=== PATIENT | male | born 1960 | race Caucasian/White ===

== ENCOUNTER 2025-02-28 17:18 | Inpatient (IN) | payer BC, SELFPAY ==
[2025-02-28] VITALS (9 sets, daily range): BP systolic 98–157; BP diastolic 65–90; BMI 31.7
--- NOTE | 2025-02-28 13:26 | ED.GENMED ---
History of Present Illness
<Isabel Weaevr PA-C - Last Filed: 02/28/25 17:19>
General
Chief Complaint: Urinary Symptoms
Source: patient
Exam Limitations: none
Time Seen by Provider: 02/28/25 13:03
History of Present Illness
History of Present Illness:
64yoM with a history of hyperlipidemia presenting for evaluation of UTI symptoms. Symptoms began 3 days ago. He felt like he was coming down with something and was experiencing body aches and chills. He then developed dysuria, urinary frequency,
and urinary urgency. His urinary symptoms have been worsening over the past 24 hours and he felt like he was in the bathroom every 10 minutes last night. He reports subjective fevers at home but has not been checking his temperature. He went to
urgent care prior to arrival. Temperature was 100.2. Urinalysis showed blood and protein and he was sent to the ED for evaluation. He denies any flank pain, vomiting, testicular pain. He is visiting family in the area for the holidays and is
from [place]. He was previously taking tadalafil for BPH but no longer takes this.
Past History
<Isabel Weaver PA-C - Last Filed: 02/28/25 17:19>
Past History
ED Past Medical History: Negative HTN, Hypercholesterolemia or IDDM
ED Past Surgical History: None
Social History
Tobacco: Smoker
Phy Exam
<Isabel Weaver PA-C - Last Filed: 02/28/25 17:19>
General Physical Exam
General Presentation: well appearing
General Skin: warm and dry
General Habitus: normal
General Mental: alert
ENT Exam
ENT Exam: normocephalic
Pulmonary Exam
Pulmonary Exam: no respiratory distress
Gastrointestinal Exam
Gastrointestinal Exam: non tender, soft, non distended and no cva tenderness
Neurological Exam
Neurological Exam: alert
Julianne Coma Scale
Eye Opening: Spontaneous
Verbal Response: Oriented
Motor Response: Obeys Commands
GCS Total Score: 15
Skin Exam
Skin Exam: normal color and warm/dry
Psychiatric Exam
Psychiatric Exam: normal mood/affect
Course
<Isabel Weaver PA-C - Last Filed: 02/28/25 17:19>
Orders/Labs/Results
Orders:
Orders
02/28/25 13:16
Urinalysis Reflex To Culture Urgent
Date Specimen was Collected: 02/28/25
Time Specimen was Collected: 13:05
Urine Microscopic Reflex Cult Urgent
Urine Culture Urgent
ANJANA Source: U
Specimen Description:
Date Specimen was Collected: 02/28/25
Time Specimen was Collected: 13:05
02/28/25 13:21
0.9% Sodium Chloride 1000 ml [Nss] 1,000 ml IV BOLUS
02/28/25 13:23
CT Abd/pelvis W Iv Cont Urgent
Comment:
Reason For Exam: UTI symptoms, fever
02/28/25 13:34
Basic Metabolic Panel Urgent
Complete Blood Count/With Diff Urgent
Lactic Acid Urgent
02/28/25 16:03
0.9% Sodium Chloride 1000 ml [Nss] 1,000 ml IV BOLUS
02/28/25 16:04
Acetaminophen [Tylenol] 1,000 mg PO NOW STA
02/28/25 16:18
CefTRIAXone [Rocephin] 2,000 mg IV NOW STA
02/28/25 16:22
LFT [Jyupt-Cjxm-Exziptz] Urgent
Magnesium Urgent
Comment: ADD ON
Potassium Urgent
Comment: ADD ON
Blood Culture Q30M
ANJANA Source: Blood/Venous
Specimen Description:
Blood Culture Q30M
ANJANA Source: Blood/Venous
Specimen Description:
02/28/25 16:29
Add On- LAB Urgent
Tests Added?: potassium, magnesium
02/28/25 16:45
Admit/Transfer Patient As Directed
Co-Sign Provider:
Level of Care: Inpatient admission
Assign to:: Medical/Surgical
Physician / Group: Antonella Catherine
Diagnosis: fevers, urinary tract infection
Reason for Hospitalization: fevers, urinary tract infection
Expected length of stay greater than two midnights?: Yes
ELOS- Estimated Length of Stay in days: 3
I certify the patient meets the requirements for IP care: Yes
PRN Pain Medication Management As Directed
May give lesser potent ordered pain med per pt: Yes
preference::
Protocol:: Medication orders for pain may be administered in a
manner that supports deferring to patient preference
when the pt is:
- Requesting an ordered lesser potent pain medication.
Least to most potent pain medications are defined
as: acetaminophen < NSAID < tramadol < opioids
(morphine, oxycodone, hydromorphone).
- Requesting a lesser dose of the same medication IF
ORDERED.
- Requesting a less intrusive route of administration
if both routes are prescribed by the provider (PO <
IV).
02/28/25 16:48
Code Status As Directed
Resuscitation Status: Full Code
Abnormal Lab Results
02/28/25 02/28/25 02/28/25
13:16 13:34 16:22
WBC 13.3 H 10^3/uL
(4.8-10.8)
RBC 4.60 L 10^6/uL
(4.70-6.10)
Abs Immat Gran (auto) 0.1 H 10^3/uL
(0-0.05)
Absolute Neuts (auto) 12.0 H 10^3/uL
(1.4-6.5)
Absolute Lymphs (auto) 0.3 L 10^3/uL
(1.2-3.4)
Absolute Monos (auto) 0.9 H 10^3/uL
(0.1-0.6)
Neutrophils % 90.4 H %
(42.2-75.2)
Lymphocytes % 2.0 L %
(20.5-51.1)
Sodium 131 L mmol/L
(135-145)
Glucose 135 H mg/dl
(70-99)
Total Bilirubin 1.7 H mg/dl
(0.2-1.3)
Urine Ketones 1+ A
(Negative)
Ur Occult Blood Reflex 4+ A
(Negative)
Leukocyte Esterase Rfl 2+ A
(Negative)
Urine RBC 7-10 A /HPF
(0-2)
Urine WBC (Reflex) 50-60 A /HPF
(0-5)
Urine Bacteria (Reflex) Moderate A
(Negative)
Urine Albumin (Reflex) 3+ A
(Neg - Trace)
02/28/25 13:34
Vital Signs
Initial and Last Documented VS:
Initial Vital Signs
Temp Pulse Resp BP Pulse Ox
98.9 F 117 16 143/82 96
02/28/25 12:54 02/28/25 12:54 02/28/25 12:54 02/28/25 12:54 02/28/25 12:54
Last Documented Vital Signs
Temp Pulse Resp BP Pulse Ox
103.0 F H 104 16 128/76 95
02/28/25 16:00 02/28/25 15:55 02/28/25 12:54 02/28/25 16:00 02/28/25 16:31
<Cassandra Delgado, DO - Last Filed: 02/28/25 16:48>
Orders/Labs/Results
Orders:
Orders
02/28/25 13:16
Urinalysis Reflex To Culture Urgent
Date Specimen was Collected: 02/28/25
Time Specimen was Collected: 13:05
Urine Microscopic Reflex Cult Urgent
Urine Culture Urgent
ANJANA Source: U
Specimen Description:
Date Specimen was Collected: 02/28/25
Time Specimen was Collected: 13:05
02/28/25 13:21
0.9% Sodium Chloride 1000 ml [Nss] 1,000 ml IV BOLUS
02/28/25 13:23
CT Abd/pelvis W Iv Cont Urgent
Comment:
Reason For Exam: UTI symptoms, fever
02/28/25 13:34
Basic Metabolic Panel Urgent
Complete Blood Count/With Diff Urgent
Lactic Acid Urgent
02/28/25 16:03
0.9% Sodium Chloride 1000 ml [Nss] 1,000 ml IV BOLUS
02/28/25 16:04
Acetaminophen [Tylenol] 1,000 mg PO NOW STA
02/28/25 16:18
CefTRIAXone [Rocephin] 2,000 mg IV NOW STA
02/28/25 16:22
LFT [Hhjfp-Kohd-Zilcvtg] Urgent
Magnesium Urgent
Comment: ADD ON
Potassium Urgent
Comment: ADD ON
Blood Culture Q30M
ANJANA Source: Blood/Venous
Specimen Description:
Blood Culture Q30M
ANJANA Source: Blood/Venous
Specimen Description:
02/28/25 16:29
Add On- LAB Urgent
Tests Added?: potassium, magnesium
02/28/25 16:45
Admit/Transfer Patient As Directed
Co-Sign Provider:
Level of Care: Inpatient admission
Assign to:: Medical/Surgical
Physician / Group: Antonella Catherine
Diagnosis: fevers, urinary tract infection
Reason for Hospitalization: fevers, urinary tract infection
Expected length of stay greater than two midnights?: Yes
ELOS- Estimated Length of Stay in days: 3
I certify the patient meets the requirements for IP care: Yes
PRN Pain Medication Management As Directed
May give lesser potent ordered pain med per pt: Yes
preference::
Protocol:: Medication orders for pain may be administered in a
manner that supports deferring to patient preference
when the pt is:
- Requesting an ordered lesser potent pain medication.
Least to most potent pain medications are defined
as: acetaminophen < NSAID < tramadol < opioids
(morphine, oxycodone, hydromorphone).
- Requesting a lesser dose of the same medication IF
ORDERED.
- Requesting a less intrusive route of administration
if both routes are prescribed by the provider (PO <
IV).
02/28/25 16:48
Code Status As Directed
Resuscitation Status: Full Code
Abnormal Lab Results
02/28/25 02/28/25 02/28/25
13:16 13:34 16:22
WBC 13.3 H 10^3/uL
(4.8-10.8)
RBC 4.60 L 10^6/uL
(4.70-6.10)
Abs Immat Gran (auto) 0.1 H 10^3/uL
(0-0.05)
Absolute Neuts (auto) 12.0 H 10^3/uL
(1.4-6.5)
Absolute Lymphs (auto) 0.3 L 10^3/uL
(1.2-3.4)
Absolute Monos (auto) 0.9 H 10^3/uL
(0.1-0.6)
Neutrophils % 90.4 H %
(42.2-75.2)
Lymphocytes % 2.0 L %
(20.5-51.1)
Sodium 131 L mmol/L
(135-145)
Glucose 135 H mg/dl
(70-99)
Total Bilirubin 1.7 H mg/dl
(0.2-1.3)
Urine Ketones 1+ A
(Negative)
Ur Occult Blood Reflex 4+ A
(Negative)
Leukocyte Esterase Rfl 2+ A
(Negative)
Urine RBC 7-10 A /HPF
(0-2)
Urine WBC (Reflex) 50-60 A /HPF
(0-5)
Urine Bacteria (Reflex) Moderate A
(Negative)
Urine Albumin (Reflex) 3+ A
(Neg - Trace)
02/28/25 13:34
Vital Signs
Initial and Last Documented VS:
Initial Vital Signs
Temp Pulse Resp BP Pulse Ox
98.9 F 117 16 143/82 96
02/28/25 12:54 02/28/25 12:54 02/28/25 12:54 02/28/25 12:54 02/28/25 12:54
Last Documented Vital Signs
Temp Pulse Resp BP Pulse Ox
103.0 F H 104 16 128/76 95
02/28/25 16:00 02/28/25 15:55 02/28/25 12:54 02/28/25 16:00 02/28/25 16:31
<Isabel Weaver PA-C - Last Filed: 02/28/25 17:19>
MDM/Problems Addressed
Differential Diagnosis Includes:
64yoM here with UTI symptoms and chills. Sent here by urgent care. Temp 98.9 on arrival. HR 117. BP stable. Patient non-toxic appearing. No CVA tenderness on exam. Differential diagnosis includes but is not limited to: UTI, pyelonephritis,
prostatitis, sepsis
Initial ED plan: Check CBC, CMP, lactate, UA, and CT abdomen with contrast. IV fluid bolus.
<Isabel Weaver PA-C - Last Filed: 02/28/25 17:19>
*Pulse Oximetry
SaO2: 96
Oxygen Mode of Delivery: Room air
Patient hypoxic: no
*Critical Care Note
Total Time (30-74mins, 75-104mins- exclusive of procedures): Not Applicable
<Isabel Weaver PA-C - Last Filed: 02/28/25 17:19>
Update Note
Update Note:
White count elevated at 13.3. Lactate within normal limits. UA with 50-60 WBCs and moderate bacteria. No evidence of hydronephrosis or stone on CT. While in ED, patient spiked a fever of 103. Blood cultures and IV Rocephin added. Will admit
for further management.
ED Attending Note
<Isabel Weaver PA-C - Last Filed: 02/28/25 17:19>
-
Portions of this chart may have been created with voice recognition software.� Occasional wrong word or��sound alike� substitutions may have occurred due to the inherent limitations of voice recognition software.
<Cassandra Delgado DO - Last Filed: 02/28/25 16:48>
ED Attending Note
Patient seen and examined by attending physician: Yes
I performed the substantive portion of visit, reviewed & personally made and approve the management plan that is documented in note by myself or EZEQUIEL.: Yes
I performed a history and physical exam of patient and discussed management with resident, I reviewed resident's note and agree with documented findings and plan of care.: Yes
ED Attending Note:
64-year-old male without significant past medical history presenting to the emergency department for urinary symptoms. Patient reports pain with urination for the past 4 days. Also reports fevers at home. Notes some generalized lower abdominal
discomfort. Denies any prior history of UTI. Does note history of prostate issues. Denies chest pain or difficulty breathing. Vital signs on arrival significant for tachycardia, however while in the hospital, spiked a temperature to 103.
On exam, patient in no acute distress. On abdominal exam, mild lower abdominal tenderness without rebound or guarding. Patient seen and evaluated by physician medical assistant prn prior evaluation with appropriate workup completed including laboratory
analysis and urinalysis. Workup significant for leukocytosis and UTI. Vital signs are meeting SIRS criteria, and doubt sepsis with known source of infection. Lactic acid however within normal limits. No concern for severe sepsis or septic shock.
Patient had CT imaging completed which does show acute cystitis without additional complicating features. Given patient's age, vitals, concern for sepsis, plan for admission for IV antibiotics
Discharge Plan
Departure
Patient Disposition: Admit
Date of Disposition: 02/28/25
Time of Disposition: 16:23
Presentation/result/management discussed w/ accepting MD/DO: Hospitalist
Discharge Problem:
Acute pyelonephritis, Sepsis
Prescriptions:
No Action
atorvastatin [Lipitor] 20 mg Tablet
20 mg PO DAILY
Referrals:
NONE,* [Family Provider, Internal Medicine]
Interventions
Interventions:
*Risk Screen - Suicide Last Done: 02/28/25 12:54
*General Assessment Last Done: 02/28/25 13:21
*Neglect/Abuse Screening Last Done: 02/28/25 12:54
*ED- Fall Risk Assessment Last Done: 02/28/25 13:21
*ED COVID-19 Vaccine History Last Done: 02/28/25 13:21
*ED Influenza Vaccine History Last Done: 02/28/25 13:21
ED-Male Genitourinary Assessment Last Done: 02/28/25 13:22
Discharge Date and Time
Print Language: GIBRALTARIAN
[2025-02-28 13:33] LABS: Urine Character Clear (Clear)
[2025-02-28] MEDS: NSS 1000 IV ×3 (13:34→19:57)
[2025-02-28 13:43] LABS: Hematocrit 40.4 % (39.0-52.0); Hemoglobin 13.9 g/dL (13.0-18.0); Mean Corp Hgb Conc. 34.4 g/dL (33.0-37.0); Mean Corpuscular Volume 87.8 fL (80.0-94.0); Nucleated Red Blood Cells % 0 % (-); Platelet Count 169 10^3/uL (130-400); Red Cell Dist. Width 13.7 % (11.5-14.5)
[2025-02-28 13:56] LABS: Urine White Cell 50-60 /HPF (0-5)
[2025-02-28 14:03] LABS: Blood Urea Nitrogen 10 mg/dl (9-20); Calcium 8.9 mg/dl (8.4-10.2); Carbon Dioxide 24 mmol/L (22-30); Chloride 101 mmol/L (98-107); Estimated Creatinine Clearance 104 ml/min; Glucose 135 mg/dl (70-99); Sodium 131 mmol/L (135-145); eGFR > 60.00
[2025-02-28] MEDS: TYLENOL 1000 MG PO (16:09)
--- NOTE | 2025-02-28 16:24 | HPS.HSE ---
Addendum entered and electronically signed by Antonella Catherine MD 02/28/25 18:23:
Daily Alcohol Use
-last drink several days ago, does not appear tremulous on exam
-order MSAS protocol
Original Note:
Family Physician
-
Family Physician: * NONE
Chief Complaint
-
fever and frequent urination
History of Present Illness
Mr. Slava Barajas is a 64 yo man with hx ex-smoker, throat CA (s/p chemo/radiation 2022 now in remission) presents to the ER with body aches and chills x past 3 days. He has had increased urinary frequency and burning.
He has felt warm but did not measure fevers at home. He has had decreased appetite. + nausea, no vomiting. No significant back pain. No abdominal pain. No chest pain or shortness of breath.
Prior to this episode patient has been waking up several times at night. Prescribed Tadalafil without relief.
Medical History
Past Medical History
Past Medical History: Reports Other (throat CA s/p chemo and radiation 2022)
Past Surgical History: Reports Other
Social History
Tobacco: Former Smoker
Alcohol: Daily
Family History
Family History: Not pertinent
Allergies / Home Medications
Allergies reflects when Allergies were last updated in [facility].
Home Medications with original date entered in [facility]
Allergy/Medication List:
Allergies
Allergy/AdvReac Type Severity Reaction Status Date / Time
Penicillins Allergy Unknown Verified 02/28/25 13:15
Home Medications
atorvastatin 20 mg tablet (Lipitor) 20 mg PO DAILY 02/28/25
Review of Systems
-
History Source: Patient
A 12 point ROS was completed and negative except as noted: Yes
Physical Exam
Vital Signs
Vital Signs
Temp Pulse Resp BP Pulse Ox
103.0 F H 117 16 135/81 93
02/28/25 16:00 02/28/25 12:54 02/28/25 12:54 02/28/25 13:36 02/28/25 13:36
Physical Exam
General: No Apparent Distress and Conversant
HEENT: PERRLA
Respiratory: Clear; No Wheezes
Cardiac: S1/S2 and Regular Rhythm
GI: Soft and Non Tender
Genito-urinary: No Costovertebral angle tend
Musculoskeletal: No Edema
Skin: Warm and Dry; No Rash
Neuro: AO x 3
Psych: Calm
Laboratory Results
-
02/28/25 13:34
02/28/25 13:34
Laboratory Results
Lactic Acid 1.1 mmol/L (0.7-2.0) 02/28/25 13:34
Total Bilirubin Cancelled 02/28/25 13:34
AST Cancelled 02/28/25 13:34
ALT Cancelled 02/28/25 13:34
Alkaline Phosphatase Cancelled 02/28/25 13:34
Data Reviewed
-
Diagnostic Radiology: Report Reviewed by me
Lab Data: Labs Reviewed by me
Impression/Plan
-
Mr. Slava Barajas is a 64 yo man with hx ex-smoker, throat CA (s/p chemo/radiation 2022 now in remission) presents to the ER with body aches and chills x past 3 days. He has had increased urinary frequency and burning.
Triage VS: T 98.9 up to 103, P 117, RR 16, BP 143/82, SpO2 96%
LABS: WBC 13.3, Hg 13.9, PLT 169, Na 131, Cl 101, Cr 0.8, Glucose 135, Lactate 1.1
UA with 50-60 WBC, 4+ blood
CT A/P
IMPRESSION: Moderate diffuse bladder wall thickening suggesting bladder outlet obstruction or cystitis. Progressed.
Moderate haziness about the bladder wall as well suggesting bladder infection. New
Ectopic left kidney. Stable
Nonobstructing left renal stone. New. See above
Moderate prostate hypertrophy.
Mild diverticulosis. No evidence of acute diverticulitis.
Fever and Leukocytosis in setting of urinary tract infection
-no evidence of end organ damage
-admit to med/surg
-continue IV Ceftriaxone
-follow up blood and urine cultures
Moderate prostate hypertrophy
-start Flomax
-bladder scan/straight cath PRN
HLD - TIPPLE BOSS Statin
DVT PPx Lovenox subQ
FULL CODE
[2025-02-28] MEDS: ROCEPHIN 2000 MG IV (16:29)
[2025-02-28 16:46] LABS: ALT (SGPT) 25 U/L (0-50); AST (SGOT) 23 U/L (17-59); Albumin 4.0 g/dl (3.5-5.0); Alkaline Phosphatase 70 U/L (38-126); Total Protein 6.4 g/dl (6.3-8.2)
--- NOTE | 2025-02-28 17:34 | CM ---
chart reviewed and spoke with patient at ED bedside
He lives in [place] for last 10 years but from [place].
Lives with his fiance Cinda in [place]
He is retired from [employer].
He drove 25 hours from [place] to visit his mother and son
Independent with ADLs and ambulation
PCP Deena Maurer in [place]
Pharmacy [facility]
no hx of VN nor SNF
CM will continue to follow up for any dcp needs
[2025-02-28 18:08] LABS: Magnesium 1.8 mg/dl (1.6-2.3); Potassium 4.0 mmol/L (3.5-5.1)
[2025-02-28] MEDS: LOVENOX 40 MG SC (19:57)
[2025-02-28] MEDS: THIAMINE INJECTION 200 MG IV (19:57)
[2025-02-28] MEDS: FLOMAX 0.4 MG PO (21:48)
[2025-03-01] MEDS: TYLENOL 650 MG PO (01:39)
[2025-03-01 07:10] LABS: Hematocrit 37.5 % (39.0-52.0); Hemoglobin 12.8 g/dL (13.0-18.0); Mean Corp Hgb Conc. 34.1 g/dL (33.0-37.0); Mean Corpuscular Volume 90.1 fL (80.0-94.0); Nucleated Red Blood Cells % 0 % (-); Platelet Count 146 10^3/uL (130-400); Red Cell Dist. Width 13.7 % (11.5-14.5)
[2025-03-01 07:31] VITALS: BP 111/67
[2025-03-01 07:48] LABS: Blood Urea Nitrogen 9 mg/dl (9-20); Calcium 7.8 mg/dl (8.4-10.2); Carbon Dioxide 25 mmol/L (22-30); Chloride 106 mmol/L (98-107); Estimated Creatinine Clearance 93 ml/min; Glucose 109 mg/dl (70-99); Magnesium 1.9 mg/dl (1.6-2.3); Potassium 3.8 mmol/L (3.5-5.1); Sodium 137 mmol/L (135-145); eGFR > 60.00
[2025-03-01] MEDS: FOLVITE 1 MG PO (08:20)
[2025-03-01] MEDS: LIPITOR 20 MG PO (08:20)
[2025-03-01] MEDS: THIAMINE INJECTION 200 MG IV ×2 (08:20→20:59)
--- NOTE | 2025-03-01 08:56 | W.PN.HOSP.TC ---
Today's Communication/Plan
-
IV antibiotic
Assessment / Plan
Assessment / Plan
Physical exam:
General: Acutely ill. Nontoxic
HEENT: Normocephalic, Atraumatic and Moist Mucous Membranes
Respiratory: Clear to Auscultation; Negative Wheezes, Rales or Rhonchi
Cardiac: Regular Rhythm and S1/S2
GI: Soft, Nontender and Nondistended
Musculoskeletal: No Clubbing, No Cyanosis and No Edema
Neuro: Awake, Alert and Oriented, no neurological deficit. No tremors
Psych: Calm
A/P:
UTI:
Continue IV ceftriaxone
Urine culture growing E. coli-->follow-up sensitivities
Seen CT scan abdomen
Blood cultures no growth but pending
WBC 6.6
BPH:
Continue Flomax
He had tried tadalafil in the past without significant success
Monitor postvoid residual
Alcohol use disorder:
On MSA protocol
Patient last drink was on the weekend so less likely to withdraw at this point.
Continue thiamine and folic acid
Will stop MSA protocol if remains stable later today or in a.m.
Hyperlipidemia:
Continue statins
DVT prophylaxis:
Lovenox SQ
CODE STATUS:
Full code
Total time spent on today's encounter was 35 minutes which included time spent in counseling the patient/family regarding diagnosis and treatment plan as listed above, goals of care, and symptom management. Case was discussed with nursing staff,
specialists, and care coordinators/case management. All labs and imaging personally reviewed by me. Remainder the time spent in detailed review of previous records, lab data, imaging, and other medical provider documentation.
Anticipated Discharge: 24 - 48 hours
Subjective/Interval History
-
Date of Service: March 01, 2025
Patient still having some fevers, Tmax 101.1 Fahrenheit, complaints of dysuria urgency frequency. No nausea vomiting or diarrhea.
Objective Data
-
Labs:
Laboratory Results
03/01/25
06:18
WBC 6.6
Hgb 12.8 L
Hct 37.5 L
Plt Count 146
Sodium 137
Potassium 3.8
Chloride 106
Carbon Dioxide 25
BUN 9
Creatinine 0.9
Glucose 109 H
Calcium 7.8 L
Vital Signs:
Vital Signs
Temp Pulse Resp BP Pulse Ox
98.2 F 78 18 111/67 97
03/01/25 07:31 03/01/25 07:31 03/01/25 07:31 03/01/25 07:31 03/01/25 07:31
I&O
02/28/25 03/01/25 03/02/25
06:59 06:59 06:59
Intake Total 120 / 120 1100 / 1100
Balance 120 / 120 1100 / 1100
--- NOTE | 2025-03-01 10:40 | CM ---
CM reviewed chart, patient seen bedside.
Consult received for Advance Directive and substance counseling.
Patient reports [place], not interested in Advance Directive or [facility].
Patient denies needs at this time.
CM will continue to follow for all d/c planning needs.
Plan; home no needs anticipated.
[2025-03-01] MEDS: NSS 1000 IV (13:06)
[2025-03-01 15:18] VITALS: BP 134/76
[2025-03-01] MEDS: ROCEPHIN 1000 MG IV (15:24)
[2025-03-01] MEDS: STERILE WATER FOR INJECTION 10 ML IV (15:24)
[2025-03-01] MEDS: LOVENOX 40 MG SC (17:05)
[2025-03-01] MEDS: FLOMAX 0.4 MG PO (20:59)
[2025-03-01 23:30] VITALS: BP 147/80
[2025-03-02] MEDS: NSS 1000 IV (05:21)
[2025-03-02] MEDS: TYLENOL 650 MG PO ×2 (05:21→23:18)
[2025-03-02 07:15] VITALS: BP 117/74
[2025-03-02 07:36] LABS: Hematocrit 34.8 % (39.0-52.0); Hemoglobin 12.2 g/dL (13.0-18.0); Mean Corp Hgb Conc. 35.1 g/dL (33.0-37.0); Mean Corpuscular Volume 87.2 fL (80.0-94.0); Nucleated Red Blood Cells % 0 % (-); Platelet Count 163 10^3/uL (130-400); Red Cell Dist. Width 13.6 % (11.5-14.5)
[2025-03-02] MEDS: LIPITOR 20 MG PO (08:08)
[2025-03-02] MEDS: THIAMINE INJECTION 200 MG IV ×2 (08:08→21:11)
[2025-03-02] MEDS: FOLVITE 1 MG PO (08:08)
[2025-03-02 09:20] LABS: Blood Urea Nitrogen 6 mg/dl (9-20); Calcium 8.5 mg/dl (8.4-10.2); Carbon Dioxide 26 mmol/L (22-30); Chloride 105 mmol/L (98-107); Estimated Creatinine Clearance 104 ml/min; Glucose 106 mg/dl (70-99); Potassium 3.7 mmol/L (3.5-5.1); Sodium 136 mmol/L (135-145); eGFR > 60.00
--- NOTE | 2025-03-02 11:32 | W.PN.HOSP.TC ---
Today's Communication/Plan
-
Antibiotics
Assessment / Plan
Assessment / Plan
Physical exam:
General: Acutely ill. Nontoxic
HEENT: Normocephalic, Atraumatic and Moist Mucous Membranes
Respiratory: Clear to Auscultation; Negative Wheezes, Rales or Rhonchi
Cardiac: Regular Rhythm and S1/S2
GI: Soft, Nontender and Nondistended
Musculoskeletal: No Clubbing, No Cyanosis and No Edema
Neuro: Awake, Alert and Oriented, no neurological deficit. No tremors
Psych: Calm
A/P:
UTI:
Continue IV ceftriaxone
Urine culture growing E. coli--> reviewed sensitivities
Seen CT scan abdomen
Blood cultures no growth
WBC 5.7
One more day of IV antibiotics and then switch to oral tomorrow
Updated family at bedside
BPH:
Continue Flomax
He had tried tadalafil in the past without significant success
Monitor postvoid residual
Alcohol use disorder:
Discontinue MSA protocol
Patient last drink was on the weekend so less likely to withdraw at this point.
Hyperlipidemia:
Continue statins
DVT prophylaxis:
Lovenox SQ
CODE STATUS:
Full code
Total time spent on today's encounter was 35 minutes which included time spent in counseling the patient/family regarding diagnosis and treatment plan as listed above, goals of care, and symptom management. Case was discussed with nursing staff,
specialists, and care coordinators/case management. All labs and imaging personally reviewed by me. Remainder the time spent in detailed review of previous records, lab data, imaging, and other medical provider documentation.
Anticipated Discharge: Within 24 hours
Subjective/Interval History
-
Date of Service: March 02, 2025
Patient feels better overall. Afebrile
Objective Data
-
Labs:
Laboratory Results
03/02/25 03/02/25
06:52 08:31
WBC 5.7
Hgb 12.2 L
Hct 34.8 L
Plt Count 163
Sodium Cancelled 136
Potassium Cancelled 3.7
Chloride Cancelled 105
Carbon Dioxide Cancelled 26
BUN Cancelled 6 L
Creatinine Cancelled 0.8
Glucose Cancelled 106 H
Calcium Cancelled 8.5
Vital Signs:
Vital Signs
Temp Pulse Resp BP Pulse Ox
98.1 F 76 18 117/74 95
03/02/25 07:15 03/02/25 07:15 03/02/25 07:15 03/02/25 07:15 03/02/25 07:15
I&O
03/01/25 03/02/25 03/03/25
06:59 06:59 06:59
Intake Total 120 / 120 2229
Balance 120 / 120 2229
[2025-03-02 15:21] VITALS: BP 128/69
[2025-03-02] MEDS: ROCEPHIN 1000 MG IV (15:42)
[2025-03-02] MEDS: STERILE WATER FOR INJECTION 10 ML IV (15:42)
[2025-03-02] MEDS: LOVENOX SC (16:52)
[2025-03-02] MEDS: FLOMAX 0.4 MG PO (21:11)
[2025-03-03 00:28] VITALS: BP 124/69
[2025-03-03] MEDS: LIPITOR 20 MG PO (07:59)
[2025-03-03] MEDS: THIAMINE INJECTION 200 MG IV (07:59)
[2025-03-03 08:00] VITALS: BP 114/72
[2025-03-03] MEDS: FOLVITE PO (08:01)
[2025-03-03 09:32] LABS: Glycohemoglobin (HgbA1c) 5.9 % (4.0-5.9)
--- NOTE | 2025-03-03 12:00 | W.PN.HOSP.TC ---
Today's Communication/Plan
-
Discharge planning today
Assessment / Plan
Assessment / Plan
Physical exam:
General: Acutely ill. Nontoxic
HEENT: Normocephalic, Atraumatic and Moist Mucous Membranes
Respiratory: Clear to Auscultation; Negative Wheezes, Rales or Rhonchi
Cardiac: Regular Rhythm and S1/S2
GI: Soft, Nontender and Nondistended
Musculoskeletal: No Clubbing, No Cyanosis and No Edema
Neuro: Awake, Alert and Oriented, no neurological deficit. No tremors
Psych: Calm
A/P:
UTI:
Continue IV ceftriaxone
Urine culture growing E. coli--> reviewed sensitivities
Seen CT scan abdomen
Blood cultures no growth
WBC 5.7
One more day of IV antibiotics and then switch to oral tomorrow
Updated family at bedside
BPH:
Continue Flomax
He had tried tadalafil in the past without significant success
Monitor postvoid residual
Alcohol use disorder:
Discontinue MSA protocol
Patient last drink was on the weekend so less likely to withdraw at this point.
Hyperlipidemia:
Continue statins
DVT prophylaxis:
Lovenox SQ
CODE STATUS:
Full code
Anticipated Discharge: Today
Subjective/Interval History
-
Date of Service: March 03, 2025
Patient feels well. No new complaint
Objective Data
-
Labs:
Laboratory Results
03/03/25 03/03/25
16:00 20:00
Sodium Pending Pending
Potassium Pending Pending
Chloride Pending Pending
Carbon Dioxide Pending Pending
BUN Pending Pending
Creatinine Pending Pending
Glucose Pending Pending
Calcium Pending Pending
Vital Signs:
Vital Signs
Temp Pulse Resp BP Pulse Ox
98.0 F 76 16 114/72 96
03/03/25 08:00 03/03/25 08:00 03/03/25 08:00 03/03/25 08:00 03/03/25 08:00
I&O
03/02/25 03/03/25 03/04/25
06:59 06:59 06:59
Intake Total 2230 / 2230 1130 / 1130
Balance 2230 / 2230 1130 / 1130
[2025-03-03] MEDS: CIPRO 500 MG PO (12:17)
[2025-03-03 12:30] VITALS: BP 130/75
--- NOTE | 2025-03-03 12:38 | W.DCSUMMARY ---
Discharge Summary
Discharge Data
Date of Admission: 02/28/25
Date of Discharge: 03/03/25
-
Pending Results: No
Hospital Course
Patient is 64 years old male with history of head and neck cancer status post chemo and radiation in the past, alcohol use disorder, came into the hospital with evidence of sepsis due to UTI. He was given broad-spectrum IV antibiotics and IV
fluids. He was placed on alcohol withdrawal protocol but patient did not meet criteria for benzodiazepine so this was subsequently discontinued and he did well the rest of the hospital stay. His urine culture grew E. coli. Antibiotics were
adjusted to sensitivities. Patient is afebrile and hemodynamically stable and eager to go home today. He was also started on Flomax and he did well with this medication so this will be continued as outpatient as well. Patient will be discharged
in stable condition today.
Discharge duration: 35 minutes
Discharge Plan
-
Patient Disposition: Home (Routine Discharge)
Discharge Diagnosis/Procedures: Urinary tract infection. Benign prostatic hypertrophy. Alcohol use disorder.
Diet: Low Cholesterol
Activity: As tolerated
Blood Work: Please PCP to order CBC, BMP within 1 week
Referrals:
Primary care provider [Other] - in less than 1 week
NONE,* [Family Provider, Internal Medicine]
Additional Discharge Medication Instructions: Strict alcohol cessation.
Prescriptions:
New
ciprofloxacin HCl 500 mg Tablet
500 mg PO BID 7 Days Qty: 14 0RF
tamsulosin 0.4 mg Capsule
0.4 mg PO HS 30 Days Qty: 30 0RF
Continued
atorvastatin [Lipitor] 20 mg Tablet
20 mg PO DAILY
Discharge Orders:
Discharge Patient (As Directed); Ordered 03/03/25
Ordered By: Maycol Robles
Discharge Date and Time
Discharge Date/Time: 03/03/25 13:22
Print Language: [place]
== END 2025-03-03 13:22 | disposition home or self-care (01) | DRG 690 ==
LOC: 4 WEST ACU 17:18
PROVIDERS: Physician Assistant; ADMITTING PHYSICIAN Student in an Organized Health Care Education/Training Program; ATTENDING PHYSICIAN Hospitalist; EMERGENCY PHYSICIAN Student in an Organized Health Care Education/Training Program
DX: N10 Acute pyelonephritis (principal); N30.00 Acute cystitis without hematuria; B96.20 Unspecified Escherichia coli [E. coli] as the cause of diseases classified elsewhere; F10.10 Alcohol abuse, uncomplicated; F17.200 Nicotine dependence, unspecified, uncomplicated; K57.30 Diverticulosis of large intestine without perforation or abscess without bleeding; N20.0 Calculus of kidney; N40.0 Benign prostatic hyperplasia without lower urinary tract symptoms; E78.5 Hyperlipidemia, unspecified; Q63.2 Ectopic kidney; Z92.21 Personal history of antineoplastic chemotherapy; Z92.3 Personal history of irradiation
CPT/HCPCS: 51798; 74177; 80048; 80076; 81003; 81015; 83036; 83605; 83735; 84132; 85025; 87040; 87077; 87086; 87186; 96374; 99285; J3480; Q9967